=== PATIENT | female | born 1935 | race Caucasian/White ===

== ENCOUNTER 2018-02-07 23:07 | Observation (INO) | payer OTHER ==
[~2018-02-07] VITALS: Ht 167.6 cm; Wt 64.6 kg
[2018-02-07 23:11] VITALS: BP 174/78
[2018-02-07] MEDS ORDERED: GLUCOTROL5 MG PO (23:32)
[2018-02-07] MEDS ORDERED: NORVASC 5 MG TAB5 MG PO (23:33)
[2018-02-07] MEDS ORDERED: LIPITOR10 MG PO (23:33)
[2018-02-07] MEDS ORDERED: LASIX 20 MG TAB20 MG PO (23:34)
[2018-02-07] MEDS ORDERED: LISINOPRIL10 MG PO (23:34)
[2018-02-07] MEDS ORDERED: SYNTHROID75 MCG PO (23:34)
[2018-02-07 23:38] LABS: ABSOLUTE BASOPHILS 0.1 thou/uL (0.0-0.2); ABSOLUTE EOSINOPHILS 0.1 thou/uL (0.0-0.7); ABSOLUTE LYMPHOCYTES 1.8 thou/uL (0.8-5.3); ABSOLUTE MONOCYTES 0.9 thou/uL (0.0-1.2); ABSOLUTE NEUTROPHILS 6.4 thou/uL (1.6-8.1); BASOPHILS 0.6 %; EOSINOPHILS 1.4 %; HEMATOCRIT 37.8 % (37.0-47.0); HEMOGLOBIN 12.8 gm/dL (12.0-15.0); LYMPHOCYTES 19.4 %; MCHC 33.8 g/dL (28.0-37.0); MCV 94.5 fL (80.0-100.0); MONOCYTES 9.7 %; MPV 11.8 fl. (7.2-11.1); NUCLEATED RBCS 0 /100WBC; PLATELET COUNT* 171 thou/uL (150-400); POLYS 68.9 %; RDW-CV 13.4 % (10.5-14.5); WBC 9.3 thou/uL (4.0-11.0)
[2018-02-08 00:01] LABS: URINE BILIRUBIN NEGATIVE (Negative); URINE BLOOD NEGATIVE (Negative); URINE CLARITY CLEAR; URINE COLOR YELLOW; URINE GLUCOSE-RANDOM NEGATIVE (Negative); URINE KETONES NEGATIVE (Negative); URINE LEUKOCYTES-REFLEX 1+ (Negative); URINE NITRITE-REFLEX NEGATIVE (Negative); URINE PROTEIN NEGATIVE (Negative); URINE SPECIFIC GRAVITY 1.015 (1.005-1.030); URINE UROBILINOGEN 0.2 E.U./dl (0.2-1.0)
[2018-02-08 00:14] LABS: ANION GAP 11 mmol/L (7-16); BUN 49 mg/dL (7-18); CALCIUM 9.9 mg/dL (8.5-10.1); CHLORIDE 99 mmol/L (98-107); CO2 28 mmol/L (21-32); CREATININE 1.5 mg/dL (0.6-1.3); GLUCOSE 134 mg/dL (70-99); POTASSIUM 3.3 mmol/L (3.5-5.1); SODIUM 138 mmol/L (136-145)
[2018-02-08 00:15] LABS: HYALINE CASTS 0-3 Few /LPF (None Seen); SQUAMOUS >10 Many /LPF (0-3); URINE RBC None Seen /HPF (0-2); URINE WBC-REFLEX 6-15 Few /HPF (0-5)
[2018-02-08 00:16] LABS: CRYSTALS None Seen /LPF (None Seen)
[2018-02-08 00:21] LABS: ALBUMIN 3.8 g/dL (3.4-5.0); ALKALINE PHOSPHATASE 66 U/L (46-116); SGOT 10 U/L (15-37); SGPT 12 U/L (30-65); TOTAL BILIRUBIN 0.4 mg/dL (<0.1-1.0); TROPONIN-I LEVEL <0.06 ng/mL (<0.06)
[2018-02-08 01:33] VITALS: BP 133/66
[2018-02-08 02:00] VITALS: BP 132/66
[2018-02-08] MEDS ORDERED: ICY HOT1 EAC1 TRANSDERM (03:41)
--- NOTE | 2018-02-08 05:42 | NUR ---
PT TO FLOOR APROX 0140 AND ASSUMED CARE. PT BED REST. RA. 1D SR ON THE MONITOR. A&O X4. K+ LOW AND REPLACED. VITALS WNL. SEE MAR. SEE CHARTING. FALL PRECAUTIONS IN PLACE. HOURLY ROUNDING FOR SAFETY.
[2018-02-08 08:00] VITALS: BP 143/74
--- NOTE | 2018-02-08 08:00 | NUR ---
AM ASSESSMENT COMPLETE, DEFER TO COMPUTER CHARTING. 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 DENIES PAIN, DIZZINESS OR ANY DISCOMFORT AT THIS TIME. CALL LIGHT WITHIN REACH. WILL MONITOR.
[2018-02-08 11:00] VITALS: BP 127/59
--- NOTE | 2018-02-08 14:32 | EKG ---
[place] [address] ELECTROCARDIOGRAM REPORT Name: ELLIE ASENCIO Room: [address] IN [facility].#: [id number] Admission: 02/08/18 Attend Phys: Surinder Francois, Discharge: Date of : 31 Report #: [id number] THIS REPORT FOR: //name// [facility] ED Test Date: 2018-02-07 Test Time: 23:15:05 Pat Name: ELLIE ASENCIO Department: Room: Gender: Test Evaluator: [place] : 1935 Requested By: Jacquie Castro Order Number: [id number] MD: Greg Roy Measurements Intervals [place] Rate: 122 P: 0 [place]: 94 QRS: -61 QRSD: 97 T: 63 QT: 386 QTc: 550 Interpretive Statements Sinus tachycardia Left anterior fascicular block Abnormal R-wave progression, late transition Prolonged QT interval No previous ECG available for comparison Electronically Signed On 02-08-2018 14:31:57 CDT by Greg Roy [email or web address] <ELECTRONICALLY SIGNED> By: Greg Roy MD, [facility] 02/08/18 1431 2315 2315 Greg Roy MD, [facility] /EPI
[2018-02-08 16:00] VITALS: BP 118/64
--- NOTE | 2018-02-08 16:09 | NUR ---
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 NO COMPLAINTS OF DIZZINESS, CHEST PAIN OR ANY DISCOMFORT TO NURSING. UP TO BATHROOM WITH CGA FROM STAFF, FALL PERCAUTIONS - BED ALARM REMAINS ON FOR SAFETY. NO CHANGE IN ASSESSMENT AT THIS TIME. CALL LIGHT WITHIN REACH. WILL CONTINUE WITH PLAN OF CARE.
[2018-02-08 19:40] VITALS: BP 126/67
[2018-02-09] VITALS: BP 127/71; BP 143/72
[2018-02-09 03:35] VITALS: BP 146/75
--- NOTE | 2018-02-09 04:15 | NUR ---
A&O X4 CALM COOPERITVE. RA. UP WITH WALKER. SL. SR- ST ON THE MONITOR. VITALS WNL. SEE MAR. SEE CHARTING. FALL PRECAUTIONS IN PLACE. HOURLY ROUNDING FOR SAFETY.
[2018-02-09 09:30] VITALS: BP 115/59
--- NOTE | 2018-02-09 09:30 | NUR ---
ASSUMED PT. CARE AND RECEIVED REPORT AT 0730. PT A/OX4, VSS, MONITOR ON TRACING ST. PT. REPORTS PAIN IN BACK, PATCH PUT IN PLACE. FULL ASSESSMENT COMPLETED, REFER TO CHARTING. PT. DOWN FOR MRI THIS MORNING. STATES SHE WOULD LIKE TO DC TO DAY POST TESTING. CALL LIGHT IN REACH, WILL CONTINUE [facility] PLAN OF CARE.
[2018-02-09 12:00] VITALS: BP 104/51
[2018-02-09 14:30] VITALS: BP 104/51
[2018-02-09 15:22] VITALS: BP 104/51
--- NOTE | 2018-02-09 16:17 | NUR ---
PT. COMPLETED ALL TESTING PER ORDERS. DR. SAMS OKAYED TO DC PER CV, HALTER MONITOR TO BE SET UP. PT. AND SON INFORMED OF PLAN TO DC AND AGREEABLE. PT. GIVEN DC INSTRUCTIONS, VERBALIZED UNDERSTANDING. PT. LEFT VIA WHEELCHAIR TO RETURN HOME IN PERSONAL VEHICLE, ALL BELONGINGS ACCOUNTED FOR.
--- NOTE | 2018-02-09 16:39 | CON ---
[address] [address] CONSULTATION Name: ELLIE ASENCIO Room: [address] Mara Dietz#: [id number] Admission: 02/08/18 Attend Phys: Surinder Francois, Discharge: 02/09/18 Date of : 31 Report #: [id number] THIS REPORT FOR: //name// CC: Wolf Francois DATE OF SERVICE: 02/09/2018 CARDIOLOGY CONSULTATION HISTORY OF PRESENT ILLNESS: The patient is an 82-year-old single white female who was admitted after a syncopal spell. The patient has never been here to [place] before. She is followed at [facility]. She currently lives with a son in [place] and is . She normally uses a walker. She was brought to the emergency room 2 nights ago. According to the family members, she got up to get some food. She apparently fell to the ground and was unresponsive for several seconds. She awakened and the family members brought her to the hospital. She does have some memory loss. She was admitted, did not require any surgery. Cardiology consultation was requested. According to the patient, she has never passed out before. She denies any history of heart disease. She denies a history of chest pain, shortness of breath, palpitations or lightheadedness. PAST MEDICAL HISTORY: Significant for an appendectomy. She had right breast cancer and had a mastectomy. She has a history of hypertension, diabetes and hyperlipidemia. MEDICATIONS: Her medications on admission consisted of amlodipine, atorvastatin, Lasix, glipizide, Synthroid and lisinopril. ALLERGIES: SHE HAS INTOLERANCE TO PENICILLIN. FAMILY HISTORY: Negative for heart disease. SOCIAL HISTORY: She smokes less than a pack of cigarettes a day. No alcohol abuse. REVIEW OF SYSTEMS: She has had no history of stroke, asthma, peptic ulcer disease or liver disease. She has had no bleeding. No vomiting. She has had a good appetite. No kidney disease. There was no seizure activity. PHYSICAL EXAMINATION: GENERAL: Revealed an elderly female lying in bed. She appeared in no acute distress. VITAL SIGNS: She had a blood pressure of 130/70 on admission with a pulse of 94[place] [address] CONSULTATION Name: ELIFELLIE Room: [address] Mara Dietz#: [id number] Admission: 02/08/18 Attend Phys: Surinder Francois, Discharge: 02/09/18 Date of : 31 Report #: [id number] HEENT: She is anicteric. Conjunctivae pink. Mucous membranes moist. NECK: Neck veins do not appear distended. CHEST: Clear to auscultation. CARDIAC EXAMINATION: Regular, tachycardia. No significant murmur. ABDOMEN: Soft. EXTREMITIES: Had no edema. Dorsalis pedis pulse 1+ bilaterally. SKIN: Warm and dry. NEUROLOGICAL EXAMINATION: Nonfocal. LABORATORY DATA: ECG appears to show sinus tachycardia, leftward axis and nonspecific ST-segment changes. Workup so far, she had multiple x-rays done in the Emergency Room, including a CT scan of the head without contrast that showed atrophy. No acute abnormality. Hematoma was noted on the forehead. She had a chest x-ray on admission that showed hyperinflated lung rivera and evidence of right mastectomy. She had carotid Doppler study that showed no significant stenosis. Lab work, sodium 138, BUN 49 and creatinine 1.5. Liver function studies were normal. TSH 0.1 and T4 of 1.6. White blood cell count 9.3, hemoglobin 12.8. On the monitor, the patient appears to be remaining in sinus tachycardia. IMPRESSION AND PLAN: 1. Syncope. Reason unclear. Suspect vasovagal. 2. Sinus tachycardia. Reason unclear. Thyroid function studies appear normal. The patient is not anemic. The patient has not had a fever. I would check echocardiogram. 3. Tobacco abuse. 4. History of breast cancer. 5. Hypertension. The patient has been on a calcium dylan and LULA inhibitor. 6. Diabetes. 7. Hyperlipidemia. The patient is on a statin drug. <ELECTRONICALLY SIGNED> By: Prem Ramirez MD, FACC 02/09/18 1639 1034 [id number] Ramirez MD, FACC /nt
--- NOTE | 2018-02-09 17:06 | 2DMMODE ---
[place] [address] 2 D/M-MODE ECHOCARDIOGRAM Name: ELLIE ASENCIO Room: [address] Mara Dietz#: [id number] Admission: 02/08/18 Attend Phys: Surinder Andrade Discharge: 02/09/18 Date of : 31 Date of Service: 02/09/18 1144 Report #: [id number] THIS REPORT FOR: //name// APPROVED REPORT Study performed: 02/09/2018 10:56:25 EXAM: Comprehensive 2D, Doppler, and color-flow Echocardiogram Patient Location: In-Patient Room #: 220 BSA: 1.71 HR: 65 bpm BP: 146/75 mmHg Other Information Study Quality: Fair Indications Syncope 2D Dimensions LVEF(%): 67.50 (>50%) IVSd: 9.46 (7-11mm) LVOT Diam: 20.29 (18-24mm) LVDd: 37.46 mm PWd: 8.88 (7-11mm) Ascending Ao: 28.49 (22-36mm) LVDs: 23.66 (25-40mm) Aortic Root: 22.73 mm Adkins's LVEF: 67.50 % Volumes Left Atrial Volume (Systole) LA ESV Index: 12.70 mL/m2 Aortic Valve AoV Peak Erick.: 2.07 m/s AO Peak Gr.: 17.17 mmHg LVOT Max P.65 mmHg AO Mean Gr.: 9.47 mmHg LVOT Mean P.58 mmHg LVOT Max V: 1.63 m/s AO V2 VTI: 24.31 cm LVOT Mean V: 1.10 m/s ANAM (VTI): 2.32 cm2 LVOT V1 VTI: 17.48 cm Mitral Valve MV Decel. Time: 127.56 ms MV PHT: 36.99 [place] [address] 2 D/M-MODE ECHOCARDIOGRAM Name: ELLIE ASENCIO [address] [id number] Admission: 02/08/18 Attend Phys: Surinder Andrade Discharge: 02/09/18 Date of : 31 Date of Service: 02/09/18 1144 Report #: [id number] MVA (PHT): 5.95 cm2 TDI Medial E' Erick.: 0.06 m/s Lateral E' Erick.: 0.05 m/s Pulmonary Valve PV Peak Erick.: 1.21 m/s PV Peak Gr.: 5.89 mmHg Tricuspid Valve TR Peak Gr.: 29.71 mmHg RVSP: 34.71 mmHg Left Ventricle The left ventricle is normal size. There is normal LV segmental wall motion. There is normal left ventricular wall thickness. Left ventricular systolic function is normal. The left ventricular ejection fraction is within the normal range. LVEF is 65-70%. The left ventricular diastolic function is normal. Right Ventricle The right ventricle is normal size. The right ventricular systolic function is normal. Atria The left atrium size is normal. The right atrium size is normal. Aortic Valve The aortic valve is normal in structure. No aortic regurgitation is present. There is no aortic valvular stenosis. Mitral Valve There is mitral annular calcification. Mild mitral regurgitation. No evidence of mitral valve stenosis. Tricuspid Valve The tricuspid valve is normal in structure. Mild tricuspid regurgitation. The RVSP is __34.7 mmHg. Pulmonic Valve Pulmonic valve is not well visualized. There is no pulmonic valvular regurgitation. Great Vessels The aortic root is normal in size. IVC is normal in size and collapses with >50% [place] [address] 2 D/M-MODE ECHOCARDIOGRAM Name: ELLIE ASENCIO Room: [address] Mara Dietz#: [id number] Admission: 02/08/18 Attend Phys: Surinder Andrade Discharge: 02/09/18 Date of : 31 Date of Service: 02/09/18 1144 Report #: [id number] Pericardium There is no pericardial effusion. <Conclusion> LVEF is 65-70%. Mild mitral regurgitation. Mild tricuspid regurgitation. The RVSP is __34.7 mmHg. <ELECTRONICALLY SIGNED> By: Prem Ramirez MD, [facility] 02/09/18 1144 1144 1144 Prem Ramirez MD, FAC /INF
--- NOTE | 2018-02-20 08:15 | EEG ---
[address] [address] EEG STUDY REPORT Name: ELLIE ASENCIO Room: [address] Mara Dietz#: [id number] Admission: 02/08/18 Attend Phys: Surinder Francois, Discharge: 02/09/18 Date of : 31 Report #: [id number] THIS REPORT FOR: //name// CC: Wolf Francois DATE OF SERVICE: 02/09/2018 This patient is being evaluated for syncope. EEG was done by placing the electrodes by standard 10-20 system of electrode placement. Both referential and sequential montages were used for recording. Background activity in this patient's EEG is about 11 Hz and 40 microvolts. This patient went to sleep that is associated with bilaterally symmetrical sleep spindle and vertex sharp waves. Photic stimulation was unremarkable. Throughout the record, no active epileptiform activity was noticed. IMPRESSION: This patient's EEG is within normal limit. Thank you very much for this referral. <ELECTRONICALLY SIGNED> By: Evaristo Wheeler MD 02/20/18 0815 1517 [id number] Wheeler MD /nt
== END 2018-02-09 15:50 | disposition home or self-care (01) ==
LOC: M.ERS 23:07 → M.2W 02-08 00:30 → M.TBA-ER 02-08 00:30 → M.2W 02-08 01:38
PROVIDERS: Personal Emergency Response Attendant; ADMIT Family Medicine
DX: R55 Syncope and collapse (principal); E11.9 Type 2 diabetes mellitus without complications; I10 Essential (primary) hypertension; E03.9 Hypothyroidism, unspecified; E78.5 Hyperlipidemia, unspecified; F17.210 Nicotine dependence, cigarettes, uncomplicated; Z72.0 Tobacco use; Z90.89 Acquired absence of other organs